=== PATIENT | male | born 1995 ===

== ENCOUNTER → 2018-04-30 | Outpatient (CLI) | payer SELFPAY ==
--- NOTE | 2018-04-30 10:34 | RADIOLOGY IMAGING REPORT ---
FACILITY: [facility] PATIENT NAME: Lamonte Hickman : 1995 MR: [id number] V: [id number] EXAM DATE: ORDERING PHYSICIAN: ZARIA DIAZ TECHNOLOGIST: Location: [facility] [place] Patient: Lamonte Hickman : 1995 Visit/Account:[id number] Date of Sevice: 04/30/2018 Right ankle, three views. HISTORY: Ankle pain, rugby injury two days ago. COMPARISON: None. Mild soft tissue swelling is present in the lateral and anterior aspects of the ankle. Small spurs a re present along the medial malleolus and the anterior and posterior tibial lips. The bones, joints, and soft tissues are otherwise unremarkable. No widening of the ankle mortise. No acute fractures ar e identified. IMPRESSION: Soft tissue swelling. Otherwise negative for acute bony abnormality. Report Dictated By: Tariq Elaine MD at 04/30/2018 10:28 AM Report E-Signed By: Tariq Elaine MD at 04/30/2018 10:30 AM WSN:[id number]
== END ==
LOC: RAD 09:55
PROVIDERS: ATTEND Emergency Medicine Sports Medicine
DX: M25.471 Effusion, right ankle (principal)

== ENCOUNTER 2018-07-03 21:17 | Emergency (ER) | payer SELFPAY ==
--- NOTE | 2018-07-03 21:31 | ER Report ---
History and Physical Time Seen By MD: 21:31 HPI/ROS CHIEF COMPLAINT: seizure HISTORY OF PRESENT ILLNESS: This is a 22 year old male. He has been sick all day with vomiting. Was hiking and did not have much oral intake. Had an episode where he lay down to rest, vomited, then had episode of losing conciousness with rhythmic head shaking, then progressed to whole body shaking. Had grogginess afterward, but back to normal level of consciousness. Has headache. Has blurred vision. No other neurologic changes. Has diffuse muscle aches. No fevers. Normal bowel and urination the last few days, but decreased urine today. Has history of a seizure when he as 13 years old, this was felt to be due to dehydration. REVIEW OF SYSTEMS: above. Allergies: Coded Allergies: No Known Drug Allergies (Unverified , 07/03/18) Home Meds Active Scripts Ondansetron 4 Mg Odt (ONDANSETRON 4 MG ODT) 4 Mg Tab.rapdis, 4 MG PO Q6H PRN for NAUSEA/VOMITING, #20 TAB 0 Refills Prov:JACQUELYN WALSH MD 07/03/18 Reviewed Nurses Notes: Yes Constitutional Vital Sign - Last 24 Hours 07/03/18 07/03/18 07/03/18 07/03/18 21:17 21:25 21:29 21:39 Temp 99.2 Pulse ??? 117 Resp 14 B/P (MAP) 168/89 168/89 (115) 131/91 (104) Pulse Ox 91 O2 Delivery Room Air 07/03/18 07/03/18 07/03/18 07/03/18 21:47 22:00 22:17 22:30 Pulse 99 88 B/P (MAP) 138/79 (98) 123/78 (93) Pulse Ox 92 91 07/03/18 07/03/18 07/03/18 07/03/18 22:47 23:00 23:05 23:30 Pulse 90 92 B/P (MAP) 110/66 (81) 117/65 (82) Pulse Ox 92 91 07/03/18 23:35 Pulse 81 Pulse Ox 94 Intake and Output 07/03/18 07/03/18 07/04/18 15:00 23:00 07:00 Intake Total 1000 ml Balance 1000 ml Physical Exam General Appearance: The patient is alert. No acute distress. Non-toxic in appearance. Eyes: Pupils are equal, round. Reactive to light. No pallor, injection or icterus. Extraocular movements are intact. Photophobia. ENT: Mucous membranes are dry. Otherwise nrmal oral mucosa. Posterior oropharynx is normal. Neck: Supple and non tender. Respiratory: Lungs are clear to auscultation. Cardiovascular: Tachycardia, but a regular rhythm. No murmurs, gallops or rubs. Normal capillary refill. No edema. Gastrointestinal: Abdomen is soft and non tender. Nondistended. Normal active bowel sounds. No costovertebral angle tenderness with percussion. Neurological: Alert and oriented x3. Cranial nerves II through XII show no acute deficits on my exam with eye exam as noted above, Normal motor and sensory function, midline tongue, symmetric palate elevation. A little bit tremulous, but normal motor strength in extremities, normal sensation. Skin: Warm and dry. No rashes. Musculoskeletal: No tenderness in palpation of the cervical, thoracic and lumbar spine. DIFFERENTIAL DIAGNOSIS: After history and physical exam, differential diagnosis was considered for dehydration from ongoing nausea and vomiting, and a seizure including but not limited to electrolyte abnormality associated with dehydration. Cannot rule out other problems such as brain bleed, mass, men ingitis. Recommended IV with fluids, lab evaluation with blood work and urine, and head CT. Medical Decision Making Data Points Result Diagram: 07/03/18213507/03/182135 Laboratory Hematology Test 07/03/18 21:24 07/03/18 21:36 Urine Color Gail Urine Clarity Cloudy Urine pH 5.0 pH (4.8-9.5) Urine Specific Hooper 1.028 Urine Protein 100 mg/dL (NEGATIVE) Urine Glucose (UA) Negative mg/dL (NEGATIVE) Urine Ketones Negative mg/dL (NEGATIVE) Urine Blood Negative (NEGATIVE) Urine Nitrite Negative (NEGATIVE) Urine Bilirubin Negative (NEGATIVE) Urine Urobilinogen 4.0 mg/dL (0.2-1.9) Urine Leukocyte Esterase Negative (NEGATIVE) Urine RBC 4 /HPF (0-2/HPF) Urine WBC 8 /HPF (0-5/HPF) Urine Squamous Epithelial Cells Many /LPF (</=FEW) Urine Bacteria Negative /HPF (NONE-FEW) Urine Hyaline Casts Few /LPF (NONE-FEW) Urine Mucus Few /HPF (NONE-FEW) Red Blood Count 5.74 M/uL (4.00-5.60) Mean Corpuscular Volume 87.4 fL (80.0-96.0) Mean Corpuscular Hemoglobin 29.7 pg (26.0-33.0) Mean Corpuscular Hemoglobin Concent 34.0 g/dL (32.0-36.0) Red Cell Distribution Width 13.0 % (11.5-14.5) Mean Platelet Volume 7.6 fL (7.2-11.1) Neutrophils (%) (Auto) 72.0 % (39.4-72.5) Lymphocytes (%) (Auto) 17.6 % (17.6-49.6) Monocytes (%) (Auto) 9.7 % (4.1-12.4) Eosinophils (%) (Auto) 0.3 % (0.4-6.7) Basophils (%) (Auto) 0.4 % (0.3-1.4) Nucleated RBC Relative Count (auto) 0.0 /100WBC Neutrophils # (Auto) 8.3 K/uL (2.0-7.4) Lymphocytes # (Auto) 2.0 K/uL (1.3-3.6) Monocytes # (Auto) 1.1 K/uL (0.3-1.0) Eosinophils # (Auto) 0.0 K/uL (0.0-0.5) Basophils # (Auto) 0.0 K/uL (0.0-0.1) Nucleated RBC Absolute Count (auto) 0.00 K/uL Sodium Level 138 mmol/L (137-145) Potassium Level 3.6 mmol/L (3.5-5.0) Chloride Level 100 mmol/L (98-107) Carbon Dioxide Level 25 mmol/L (22-30) Blood Urea Nitrogen 15 mg/dl (9-21) Creatinine 1.40 mg/dl (0.66-1.25) Glomerular Filtration Rate Calc > 60.0 Random Glucose 110 mg/dl (75-110) Lactate 2.7 mmol/L (0.7-2.1) Calcium Level 10.4 mg/dl (8.4-10.2) Magnesium Level 1.9 mg/dl (1.7-2.2) Total Bilirubin 2.0 mg/dl (0.2-1.3) Aspartate Amino Transf (AST/SGOT) 26 U/L (0-35) Alanine Aminotransferase (ALT/SGPT) 33 U/L (0-56) Alkaline Phosphatase 96 U/L (0-126) Total Protein 7.9 g/dl (6.3-8.2) Albumin 5.0 g/dl (3.5-5.0) Amylase Level 66 U/L (0-110) Lipase 92 U/L (23-300) Chemistry Test 07/03/18 21:24 07/03/18 21:36 Urine Color Gail Urine Clarity Cloudy Urine pH 5.0 pH (4.8-9.5) Urine Specific Hooper 1.028 Urine Protein 100 mg/dL (NEGATIVE) Urine Glucose (UA) Negative mg/dL (NEGATIVE) Urine Ketones Negative mg/dL (NEGATIVE) Urine Blood Negative (NEGATIVE) Urine Nitrite Negative (NEGATIVE) Urine Bilirubin Negative (NEGATIVE) Urine Urobilinogen 4.0 mg/dL (0.2-1.9) Urine Leukocyte Esterase Negative (NEGATIVE) Urine RBC 4 /HPF (0-2/HPF) Urine WBC 8 /HPF (0-5/HPF) Urine Squamous Epithelial Cells Many /LPF (</=FEW) Urine Bacteria Negative /HPF (NONE-FEW) Urine Hyaline Casts Few /LPF (NONE-FEW) Urine Mucus Few /HPF (NONE-FEW) White Blood Count 11.5 k/uL (4.5-11.0) Red Blood Count 5.74 M/uL (4.00-5.60) Hemoglobin 17.0 g/dL (14.0-18.0) Hematocrit 50.2 % (42.0-52.0) Mean Corpuscular Volume 87.4 fL (80.0-96.0) Mean Corpuscular Hemoglobin 29.7 pg (26.0-33.0) Mean Corpuscular Hemoglobin Concent 34.0 g/dL (32.0-36.0) Red Cell Distribution Width 13.0 % (11.5-14.5) Platelet Count 340 K/uL (150-450) Mean Platelet Volume 7.6 fL (7.2-11.1) Neutrophils (%) (Auto) 72.0 % (39.4-72.5) Lymphocytes (%) (Auto) 17.6 % (17.6-49.6) Monocytes (%) (Auto) 9.7 % (4.1-12.4) Eosinophils (%) (Auto) 0.3 % (0.4-6.7) Basophils (%) (Auto) 0.4 % (0.3-1.4) Nucleated RBC Relative Count (auto) 0.0 /100WBC Neutrophils # (Auto) 8.3 K/uL (2.0-7.4) Lymphocytes # (Auto) 2.0 K/uL (1.3-3.6) Monocytes # (Auto) 1.1 K/uL (0.3-1.0) Eosinophils # (Auto) 0.0 K/uL (0.0-0.5) Basophils # (Auto) 0.0 K/uL (0.0-0.1) Nucleated RBC Absolute Count (auto) 0.00 K/uL Glomerular Filtration Rate Calc > 60.0 Lactate 2.7 mmol/L (0.7-2.1) Calcium Level 10.4 mg/dl (8.4-10.2) Magnesium Level 1.9 mg/dl (1.7-2.2) Total Bilirubin 2.0 mg/dl (0.2-1.3) Aspartate Amino Transf (AST/SGOT) 26 U/L (0-35) Alanine Aminotransferase (ALT/SGPT) 33 U/L (0-56) Alkaline Phosphatase 96 U/L (0-126) Total Protein 7.9 g/dl (6.3-8.2) Albumin 5.0 g/dl (3.5-5.0) Amylase Level 66 U/L (0-110) Lipase 92 U/L (23-300) Urinalysis Test 07/03/18 21:24 Urine Color Gail Urine Clarity Cloudy Urine pH 5.0 pH (4.8-9.5) Urine Specific Hooper 1.028 Urine Protein 100 mg/dL (NEGATIVE) Urine Glucose (UA) Negative mg/dL (NEGATIVE) Urine Ketones Negative mg/dL (NEGATIVE) Urine Blood Negative (NEGATIVE) Urine Nitrite Negative (NEGATIVE) Urine Bilirubin Negative (NEGATIVE) Urine Urobilinogen 4.0 mg/dL (0.2-1.9) Urine Leukocyte Esterase Negative (NEGATIVE) Urine RBC 4 /HPF (0-2/HPF) Urine WBC 8 /HPF (0-5/HPF) Urine Squamous Epithelial Cells Many /LPF (</=FEW) Urine Bacteria Negative /HPF (NONE-FEW) Urine Hyaline Casts Few /LPF (NONE-FEW) Urine Mucus Few /HPF (NONE-FEW) EKG/Imaging Imaging Patient refused CT scan of head without contrast. ED Course/Re-evaluation Clinical Indication for ER IV: Hydration, IV Access ED Course After initial evaluation, no neurologic deficits noted. NS 1000cc given. Morphine 2mg IV for pain initially. Helped body pains, but still has headache. Labs show dehydration. Patient refused CT Scan. Discussed the reasons for ordering this, seizure and headache, and the problems we were looking for (bleeding or mass) and the consequences of missing these problems. The patient expressed understanding, but still did not want the scan. Gave Tylenol for headache and was going to give second liter of NS, but he wanted to leave so refused this. Recommended follow-up with neurology and primary care. See instructions below. Decision to Disposition Date: Jul 03, 2018 Decision to Disposition Time: 23:29 Depart Departure Latest Vital Signs Vital Signs Date Time Temp Pulse Resp B/P (MAP) Pulse Ox O2 Delivery O2 Flow Rate FiO2 07/03/18 23:35 81 94 07/03/18 23:30 117/65 (82) 07/03/18 21:25 99.2 14 Room Air Impression: Primary Impression: Seizure Additional Impression: Dehydration Condition: Improved Disposition: HOME OR SELF-CARE New Scripts Ondansetron 4 Mg Odt (ONDANSETRON 4 MG ODT) 4 Mg Tab.rapdis 4 MG PO Q6H PRN for NAUSEA/VOMITING, #20 TAB 0 Refills Prov: JACQUELYN WALSH MD 07/03/18 Patient Instructions: Dehydration (ED), Recurrent Seizures in Adults (ED) Additional Instructions: Labs showed dehydration. We were not able to complete a workup without the imaging as we discussed. We recommend increasing fluid intake. You will need to follow-up with a neurologist as we discussed because this is the second time you have had a seizure. No driving until cleared by neurology. No activities that would cause injury to self or others if you had a seizure while doing them. Examples would include swimming or bathing, climbing ladders, etc. Tylenol as needed for headache. If you change your mind, you can return for further treatment and imaging as we discussed. Zofran 4mg, one every 6 hours as needed for nausea or vomiting. Problem Qualifiers JACQUELYN WALSH MD Jul 03, 2018 21:31
[2018-07-03] MEDS ORDERED: MORPHINE 2 MG/ML SYR IVP ONE (21:50)
[2018-07-03] MEDS ORDERED: ONDANSETRON 4 MG/2 ML VIAL IVP ONE (21:50)
[2018-07-03] MEDS ORDERED: NS(*) 0.9% 1000 ML BAG 1,000 ML IV ONE ×2 (21:50→22:40)
[2018-07-03 21:56] LABS: PLATELET COUNT, AUTOMATED 340 K/uL (150-450)
[2018-07-03] MEDS ORDERED: ACETAMINOPHEN 500 MG TAB PO ONE (22:40)
[2018-07-03 23:30] VITALS: BP 117/65
[2018-07-03] MEDS ORDERED: ONDA4TAB9 PO (23:34)
[2018-07-03] MEDS ORDERED: ONDANSETRON 4 MG ODT TH SL ONE (23:35)
== END 2018-07-03 23:47 | disposition home or self-care (01) ==
LOC: ER 21:29
DX: R56.9 Unspecified convulsions (principal); E86.0 Dehydration
CPT/HCPCS: 81001; 82150; 83605; 83690; 83735; 85025; 96374; 96375; 99284; J2270; J2405; J7030; S0119; 82040; 82247; 82310; 82374; 82435; 82565; 82947; 84075; 84132; 84155; 84295; 84450; 84460; 84520